=== PATIENT | female | born 1960 | race Caucasian/White ===

== ENCOUNTER 2019-09-17 07:35 | Inpatient (IN) | payer OTHER, SELFPAY ==
[2019-09-17] MEDS ORDERED: NA CHLORIDE 0.9% 4,000 ML ONE (08:12)
[2019-09-17] MEDS ORDERED: HYDROCORTISONE SUC 100 MG INJ ONE (08:12)
[2019-09-17] MEDS ORDERED: ACETAMINOPHEN 500 MG TAB ONE ×2 (08:12→13:58)
[2019-09-17 08:18] LABS: Absolute Lymphocytes (CBC) 0.5 K/uL (0.7-4.9); Basophils % 0.2 % (0-1.3); Hematocrit 37.7 % (36.0-45.0); Lymphocytes % 3.4 % (15.3-44.8); MPV 9.5 fL (7.6-11.3); RBC Red Blood Cell Count 4.24 M/uL (3.86-4.86)
[2019-09-17] MEDS ORDERED: CEFEPIME 2 GM VIAL ONE (08:38)
[2019-09-17] MEDS ORDERED: NA CHLORIDE 0.9% 100 ML IV ONE (08:39)
[2019-09-17] MEDS ORDERED: VANCOMYCIN 1 GM/VIAL ONE (08:39)
[2019-09-17] MEDS ORDERED: FAMOTIDINE 20 MG/2 ML VIAL IV ONE ×2 (08:40→09:00)
[2019-09-17] MEDS ORDERED: NA CHLORIDE 0.9% 500 ML ONE (08:44)
--- NOTE | 2019-09-17 08:47 | EDPHYS ---
Physician Documentation [facility] Name: Rebecca Bunch Age: 59 yrs Sex: Female : 1960 Arrival Date: 09/17/2019 Time: 07:46 Bed 8 Private MD: ARTUR Physician Silvano Marin HPI: 09/16 08:03 This 59 yrs old Female presents to ER via Unassigned with complaints of richard Nausea/Vomiting. 08:03 The patient presents to the emergency department with nausea, vomiting, diarrhea, richard abdominal pain. Onset: The symptoms/episode began/occurred 3 day(s) ago. Possible causes: unknown. The symptoms are aggravated by nothing. The symptoms are alleviated by nothing. Associated signs and symptoms: Pertinent positives: abdominal pain, dysuria, fever. Severity of symptoms: At their worst the symptoms were moderate severe in the emergency department the symptoms are unchanged. The patient has not experienced similar symptoms in the past. Historical: - Allergies: 08:21 Benadryl; ia1 08:21 Aspirin; ia1 - Home Meds: 08:20 hydroxyzine HCl 25 mg Oral tab 1 tab Q4hrs as needed for Itching [Active]; montelukast ia1 10 mg oral tab 1 tab once daily [Active]; pantoprazole 40 mg oral TbEC 1 tab once daily [Active]; quetiapine 100 mg oral tab 1 tab once daily [Active]; fluconazole 150 mg Oral tab 1 tab once a week [Active]; ibuprofen 800 mg Oral tab 1 tab 3 times per day [Active]; tizanidine 4 mg oral tab 1 tab every 8 hours [Active]; furosemide 40 mg Oral tab 1 tab once daily [Active]; Mucinex 600 mg oral Ta12 1 tab every 12 hours [Active]; lorazepam 1 mg Oral tab 1 tab 2 times per day [Active]; fluoxetine 40 mg Oral cap 1 cap once daily [Active]; baclofen 10 mg Oral tab 1 tab 3 times per day [Active]; ropinirole 1 mg oral tab 1 tab daily [Active]; gabapentin 600 mg oral tab 1 tab 3 times per day [Active]; ondansetron 4 mg oral TbDL [Active]; - PMHx: 08:21 COPD; Diabetes - NIDDM; ia1 - PSHx: 08:21 Hysterectomy; Cholecystectomy; ia1 - Immunization history:: Flu vaccine is up to date. - Social history:: Smoking status: Patient/guardian denies using. ROS: 08:06 Eyes: Negative for injury, pain, redness, and discharge, ENT: Negative for injury, richard pain, and discharge, Neck: Negative for injury, pain, and swelling, Respiratory: Negative for shortness of breath, cough, wheezing, and pleuritic chest pain, Back: Negative for injury and pain, MS/Extremity: Negative for injury and deformity, Skin: Negative for injury, rash, and discoloration, Neuro: Negative for headache, weakness, numbness, tingling, and seizure, Psych: Negative for depression, anxiety, suicide ideation, homicidal ideation, and hallucinations, Allergy/Immunology: Negative for hives, rash, and allergies, Endocrine: Negative for neck swelling, polydipsia, polyuria, polyphagia, and marked weight changes, Hematologic/Lymphatic: Negative for swollen nodes, abnormal bleeding, and unusual bruising. 08:06 Constitutional: Positive for body aches, chills, fatigue, fever, malaise, poor PO intake. 08:06 Cardiovascular: Positive for palpitations. 08:06 Respiratory: Positive for cough, shortness of breath, on exertion. 08:06 Abdomen/GI: Positive for abdominal pain. 08:06 : Positive for urinary symptoms, urinary frequency, burning with urination, difficulty urinating. 08:06 MS/extremity: Negative for acute changes. Exam: 08:06 Head/Face: Normocephalic, atraumatic. Eyes: Pupils equal round and reactive to light, richard extra-ocular motions intact. Lids and lashes normal. Conjunctiva and sclera are non-icteric and not injected. Cornea within normal limits. Periorbital areas with no swelling, redness, or edema. ENT: Nares patent. No nasal discharge, no septal abnormalities noted. Tympanic membranes are normal and external auditory canals are clear. Oropharynx with no redness, swelling, or masses, exudates, or evidence of obstruction, uvula midline. Mucous membranes moist. Neck: Trachea midline, no thyromegaly or masses palpated, and no cervical lymphadenopathy. Supple, full range of motion without nuchal rigidity, or vertebral point tenderness. No Meningismus. Chest/axilla: Normal chest wall appearance and motion. Nontender with no deformity. No lesions are appreciated. Respiratory: Lungs have equal breath sounds bilaterally, clear to auscultation and percussion. No rales, rhonchi or wheezes noted. No increased work of breathing, no retractions or nasal flaring. Abdomen/GI: Soft, non-tender, with normal bowel sounds. No distension or tympany. No guarding or rebound. No evidence of tenderness throughout. Female : Normal external genitalia. Skin: Warm, dry with normal turgor. Normal color with no rashes, no lesions, and no evidence of cellulitis. MS/ Extremity: Pulses equal, no cyanosis. Neurovascular intact. Full, normal range of motion. Neuro: Awake and alert, GCS 15, oriented to person, place, time, and situation. Cranial nerves II-XII grossly intact. Motor strength 5/5 in all extremities. Sensory grossly intact. Cerebellar exam normal. Normal gait. Psych: Awake, alert, with orientation to person, place and time. Behavior, mood, and affect are within normal limits. 08:06 Constitutional: The patient appears febrile, lethargic, in obvious distress, mildly distressed. 08:06 ENT: Mouth: Oral mucosa: dry, Gums: normal with healthy appearance, Tongue: dry, Posterior pharynx: is normal, no acute changes. 08:06 Cardiovascular: Rate: tachycardic, Rhythm: regular, Pulses: Pulses are 4+ in bilateral radial, brachial, femoral, popliteal, posterior tibial and and dorsalis pedis arteries.. Heart sounds: normal, Edema: is not appreciated, JVD: is not appreciated. 08:06 Respiratory: the patient does not display signs of respiratory distress, Respirations: normal, no acute changes, labored breathing, is not present, Breath sounds: decreased breath sounds, Respiratory rate: 30 Vital Signs: 07:43 BP 88 / 50; Pulse 97; Resp 32 S; Temp 103.1(O); Pulse Ox 88% on R/A; Weight 145.15 kg; jl7 Height 5 ft. 9 in. (175.26 cm); Pain 8/10; 08:00 BP 98 / 48; Pulse 97; Resp 33 S; Pulse Ox 92% on 3 lpm NC; jl7 08:30 BP 80 / 58; Pulse 97; Resp 29 S; Pulse Ox 92% on 3 lpm NC; jl7 09:00 BP 101 / 75; Pulse 95; Resp 31 S; Pulse Ox 93% on 3 lpm NC; jl7 09:30 BP 78 / 65; Pulse 95; Resp 23 S; Pulse Ox 95% on 3 lpm NC; jl7 10:00 BP 94 / 51; Pulse 97; Resp 23 S; Temp 100.3(O); Pulse Ox 94% on 2 lpm NC; jl7 10:00 Temp 100.3(O); jl7 10:30 BP 97 / 77; Pulse 89; Resp 25; Pulse Ox 94% on 2 lpm NC; jl7 11:11 BP 114 / 64; Pulse 86; Resp 22 S; Temp 99(O); Pulse Ox 94% on 2 lpm NC; jl7 12:30 BP 117 / 67; Pulse 84; Resp 22 S; Temp 98.9(O); Pulse Ox 94% on 2 lpm NC; jl7 13:00 BP 115 / 67; Pulse 80; Resp 21 S; Pulse Ox 95% on 2 lpm NC; jl7 14:00 Pulse 116; Resp 24 S; Temp 99.8(O); Pulse Ox 94% on 2 lpm NC; jl7 14:45 BP 187 / 80; Pulse 106; jl7 15:40 BP 138 / 66; Pulse 111; Resp 22 S; Temp 103.1(O); Pulse Ox 92% on 3 lpm NC; jl7 16:33 BP 123 / 64; Pulse 102; Resp 28 S; Pulse Ox 93% on 3 lpm NC; jl7 17:00 BP 116 / 73; Pulse 100; Resp 24; Temp 100.4(O); Pulse Ox 94% on 3 lpm NC; jl7 07:43 Body Mass Index 47.26 (145.15 kg, 175.26 cm) jl7 14:00 unable to obtain BP due to shaking jl7 Procedures: 08:16 Peripheral line: by aseptic technique a peripheral line was placed in the right [facility] external jugular vein. 09:26 Central Line: the site was prepped with Betadine, in sterile fashion, a triple lumen [facility] catheter was inserted, in the right in 1 attempts. placement was verified, by blood return, the site was dressed with using sterile technique, the patient tolerated the procedure, well. [facility]: 07:47 Patient medically screened. [facility] 08:06 Data reviewed: vital signs, nurses notes, lab test result(s), EKG, radiologic studies, [facility] CT scan, plain films. 09/16 08:02 Order name: Basic Metabolic Panel; Complete Time: 10:03 [facility] 09/16 08:02 Order name: CBC with Diff; Complete Time: 10:03 [facility] 09/16 08:02 Order name: LFT's; Complete Time: 10:03 [facility] 09/16 08:02 Order name: Magnesium; Complete Time: 10:03 [facility] 09/16 08:02 Order name: NT PRO-BNP; Complete Time: 10:03 [facility] 09/16 08:02 Order name: PT-INR; Complete Time: 14:20 [facility] 09/16 08:02 Order name: Troponin (emerg Dept Use Only); Complete Time: 10:03 [facility] 09/16 08:02 Order name: Amylase, Serum; Complete Time: 10:03 [facility] 09/16 08:02 Order name: Blood Culture Adult (2) [facility] 09/16 08:02 Order name: Ckmb; Complete Time: 10:03 [facility] 09/16 08:02 Order name: CPK; Complete Time: 10:03 [facility] 09/16 08:02 Order name: Lactate; Complete Time: 08:44 [facility] 09/16 08:02 Order name: Lipase; Complete Time: 10:03 [facility] 09/16 08:02 Order name: Procalcitonin; Complete Time: 10:03 [facility] 09/16 08:02 Order name: Ptt, Activated; Complete Time: 14:20 [facility] 09/16 08:02 Order name: Urine Microscopic Only; Complete Time: 10:03 [facility] 09/16 08:14 Order name: Glucose, Ancillary Testing; Complete Time: 08:17 EDNC 09/16 08:37 Order name: Urine Dipstick--Ancillary (enter results); Complete Time: 14:20 ms 09/16 09:19 Order name: Manual Differential; Complete Time: 10:03 EDMS 09/16 09:38 Order name: Urine Culture EDNC 09/16 14:32 Order name: ABG [facility] 09/16 14:37 Order name: Glucose, Ancillary Testing; Complete Time: 15:06 EDMS 09/16 14:48 Order name: ABG Arterial Blood Gas; Complete Time: 15:06 EDMS 09/16 15:37 Order name: BMP jl7 09/16 16:16 Order name: Basic Metabolic Panel; Complete Time: 07:46 EDMS 09/16 19:00 Order name: Hemoglobin A1c; Complete Time: 07:46 EDMS 09/16 21:30 Order name: Gram Stain--Anaerobic Bottle EDMS 09/16 21:31 Order name: Gram Stain--Anaerobic Bottle EDMS 09/16 21:41 Order name: Glucose, Ancillary Testing; Complete Time: 07:46 EDMS 09/16 08:02 Order name: XRAY Chest (1 view); Complete Time: 14:20 [facility] 09/16 08:02 Order name: EKG; Complete Time: 08:04 [facility] 09/16 08:02 Order name: Cardiac monitoring; Complete Time: 12:38 [facility] 09/16 08:02 Order name: EKG - Nurse/Tech; Complete Time: 11:16 [facility] 09/16 08:02 Order name: IV Saline Lock; Complete Time: 10:29 [facility] 09/16 08:02 Order name: CT Chest Abdomen Pelvis W/O Contrast: no iv no oral; Complete Time: 14:20 [facility] 09/16 14:32 Order name: CT Head Brain wo Cont [facility] 09/16 15:37 Order name: CT; Complete Time: 07:46 EDMS 09/16 21:57 Order name: Lactate; Complete Time: 07:46 EDMS 09/16 23:12 Order name: Glucose, Ancillary Testing; Complete Time: 07:46 EDMS 09/17 02:26 Order name: Lactate Sepsis 2 HR Follow-up; Complete Time: 07:46 EDMS 09/17 05:20 Order name: CBC with Automated Diff; Complete Time: 07:46 EDMS 09/17 05:41 Order name: Basic Metabolic Panel; Complete Time: 07:46 EDMS 09/17 05:41 Order name: Lipid Profile; Complete Time: 07:46 EDMS 09/17 05:41 Order name: T4 Free; Complete Time: 07:46 EDMS 09/17 05:41 Order name: Magnesium; Complete Time: 07:46 EDMS 09/17 05:41 Order name: Thyroid Stimulating Hormone; Complete Time: 07:46 EDMS 09/17 07:01 Order name: Gram Stain--Aerobic Bottle EDMS 09/17 07:02 Order name: Gram Stain--Aerobic Bottle EDMS 09/17 07:43 Order name: US; Complete Time: 07:46 EDMS 09/17 08:08 Order name: Diet [place] 1800 [place]; Complete Time: 08:09 bd 09/17 08:23 Order name: Glucose, Ancillary Testing EDMS 09/16 08:02 Order name: Labs collected and sent; Complete Time: 10:29 richard 09/16 08:02 Order name: O2 Per Protocol; Complete Time: 10: rcihard 09/16 08:02 Order name: O2 Sat Monitoring; Complete Time: 10: richard 09/16 08:02 Order name: Accucheck; Complete Time: 10: richard 09/16 08:02 Order name: IV Saline Lock - Large Bore; Complete Time: 10: richard 09/16 08:02 Order name: Urine Dipstick-Ancillary (obtain specimen); Complete Time: 10: [facility] 09/16 08:02 Order name: Nath; Complete Time: 10: richard 09/16 08:17 Order name: IV Saline Lock - Large Bore; Complete Time: 10: [facility] 09/16 14:33 Order name: Blood Glucose Level; Complete Time: 14:34 [facility] Administered Medications: 08:30 Drug: Cefepime 2 grams Route: IVPB; Rate: 200 ml/hr; Infused Over: 30 mins; Site: right jl7 antecubital; 09:00 Follow up: Response: No adverse reaction; IV Status: Completed infusion jl7 08:30 Drug: Tylenol 1000 mg Route: PO; jl7 10:00 Follow up: Temp 100.3 Oral; Response: No adverse reaction; Temperature is decreased jl7 08:35 Drug: NS 0.9% (30 ml/kg) 30 ml/kg Route: IV; Rate: bolus; Site: right antecubital; jl7 09:40 Drug: NS 0.9% (30 ml/kg) 30 ml/kg Route: IV; Rate: bolus; Site: right femoral; jl7 12:00 Follow up: Response: No adverse reaction; IV Status: Completed infusion; IV Intake: [facility] 4354ml 09:40 Drug: vancoMYCIN 2 grams Route: IVPB; Rate: calculated rate; Site: right femoral; jl7 11:40 Follow up: Response: No adverse reaction; IV Status: Completed infusion jl7 09:40 Drug: Solu-CORTEF 100 mg Route: IVP; Site: right femoral; jl7 10:46 Follow up: Response: No adverse reaction jl7 11:02 Drug: Pepcid 20 mg Route: IVP; Site: right antecubital; jl7 11:05 Follow up: Response: No adverse reaction jl7 14:00 Drug: Tylenol 500 mg Route: PO; jl7 15:40 Follow up: Response: No adverse reaction; Temperature is increased jl7 15:45 Drug: Tylenol 650 mg Route: PO; jl7 17:00 Follow up: Response: No adverse reaction; Temperature is decreased jl7 15:55 Drug: NS 0.45 % 1000 ml Route: IV; Rate: 100 ml/hr; Site: right forearm; jl7 19:02 Follow up: IV Status: Infusion continued upon admission jl7 18:02 Drug: Thiamine 100 mg Route: IV; Rate: bolus; Site: right femoral; jl7 18:03 Follow up: Response: No adverse reaction; IV Status: Completed infusion jl7 Disposition: 09/17/19 08:46 Hospitalization ordered by Rishi Pulido for Inpatient Admission. Preliminary diagnosis are Sepsis, unspecified organism, Severe sepsis with septic shock, Elevated white blood cell count, Hypotension, Fever, unspecified, Obesity, unspecified, Type 2 diabetes mellitus, Unspecified kidney failure, Bandemia. - Bed requested for Telemetry/MedSurg (Inpatient). - Status is Inpatient Admission. bp - Condition is Fair. - Problem is new. - Symptoms have improved. Signatures: Dispatcher [employer] EDDaija Soler RN RN dw Anderson, Corey, MD MD cha Villarreal, Maria ms Leal, Jahala, RN RN jl7 Peltier, Brian, RN RN bp Arroyo, Ivonne ia1 Corrections: (The following items were deleted from the chart) 08:24 08:06 Family history: not pertinent, richard ia1 08:24 08:07 Social history: Smoking status: Patient/guardian denies using ia1 ia1 08:24 08:21 Immunization history: Flu vaccine is up to date. ia1 ia1 09:26 08:46 Hospitalization Ordered by Rishi Pulido DO for Inpatient Admission. Preliminary [facility] diagnosis is Sepsis, unspecified organism; Severe sepsis with septic shock; Elevated white blood cell count; Hypotension; Fever, unspecified; Obesity, unspecified. Bed requested for Intensive Care Unit. Status is Inpatient Admission. Condition is Fair. Problem is new. Symptoms have improved. [facility] 10:04 09:26 09/17/2019 08:46 Hospitalization Ordered by Rishi Pulido DO for Inpatient richard Admission. Preliminary diagnosis is Sepsis, unspecified organism; Severe sepsis with septic shock; Elevated white blood cell count; Hypotension; Fever, unspecified; Obesity, unspecified; Type 2 diabetes mellitus. Bed requested for Intensive Care Unit. Status is Inpatient Admission. Condition is Fair. Problem is new. Symptoms have improved. [facility] 15:07 10:04 09/17/2019 08:46 Hospitalization Ordered by Rishi Pulido DO for Inpatient richard Admission. Preliminary diagnosis is Sepsis, unspecified organism; Severe sepsis with septic shock; Elevated white blood cell count; Hypotension; Fever, unspecified; Obesity, unspecified; Type 2 diabetes mellitus; Unspecified kidney failure. Bed requested for Intensive Care Unit. Status is Inpatient Admission. Condition is Fair. Problem is new. Symptoms have improved. [facility] 16:05 15:07 09/17/2019 08:46 Hospitalization Ordered by Rishi Pulido DO for Inpatient ms Admission. Preliminary diagnosis is Sepsis, unspecified organism; Severe sepsis with septic shock; Elevated white blood cell count; Hypotension; Fever, unspecified; Obesity, unspecified; Type 2 diabetes mellitus; Unspecified kidney failure; Bandemia. Bed requested for Intensive Care Unit. Status is Inpatient Admission. Condition is Fair. Problem is new. Symptoms have improved. [facility] 09/17 09:09 03/ 16:05 09/17/2019 08:46 Hospitalization Ordered by Rishi Pulido DO for Inpatient dw Admission. Preliminary diagnosis is Sepsis, unspecified organism; Severe sepsis with septic shock; Elevated white blood cell count; Hypotension; Fever, unspecified; Obesity, unspecified; Type 2 diabetes mellitus; Unspecified kidney failure; Bandemia. Bed requested for [facility] ER HOLD. Status is Inpatient Admission. Condition is Fair. Problem is new. Symptoms have improved. fl 09/17 09:09 09:09 09/17/2019 08:46 Hospitalization Ordered by Rishi Pulido DO for Inpatient dw Admission. Preliminary diagnosis is Sepsis, unspecified organism; Severe sepsis with septic shock; Elevated white blood cell count; Hypotension; Fever, unspecified; Obesity, unspecified; Type 2 diabetes mellitus; Unspecified kidney failure; Bandemia. Bed requested for Telemetry/MedSurg (Inpatient). Status is Inpatient Admission. Condition is Fair. Problem is new. Symptoms have improved. dw 09:55 09:09 09/17/2019 08:46 Hospitalization Ordered by Rishi Pulido DO for Inpatient bp Admission. Preliminary diagnosis is Sepsis, unspecified organism; Severe sepsis with septic shock; Elevated white blood cell count; Hypotension; Fever, unspecified; Obesity, unspecified; Type 2 diabetes mellitus; Unspecified kidney failure; Bandemia. Bed requested for Telemetry/MedSurg (Inpatient). Status is Inpatient Admission. Condition is Fair. Problem is new. Symptoms have improved. dw
--- NOTE | 2019-09-17 08:47 | ER ---
Nurse's Notes [facility] Name: Rebecca Bunch Age: 59 yrs Sex: Female : 1960 Arrival Date: 09/17/2019 Time: 07:46 Bed 8 Private MD: Diagnosis: Sepsis, unspecified organism;Severe sepsis with septic shock;Elevated white blood cell count;Hypotension;Fever, unspecified;Obesity, unspecified;Type 2 diabetes mellitus;Unspecified kidney failure;Bandemia Presentation: 09/16 07:40 Method Of Arrival: EMS: [facility] ia1 07:40 Acuity: STU 2 iw 07:40 Chief complaint: EMS states: N/V/D, burning with urination started Wednesday. jl7 07:40 Coronavirus screen: The patient has NOT traveled to [place] in the past 14 days. Proceed jl7 with normal triage procedures. Ebola Screen: No symptoms or risks identified at this time. 07:46 Initial Sepsis Screen: Does the patient meet any 2 criteria? Yes Does the patient have jl7 a suspected source of infection? Yes: Dysuria/Frequency/Urgency/UTI If YES to both, name of provider notified: Silvano Marin MD Risk Assessment: Do you want to hurt yourself or someone else? Patient reports no desire to harm self or others. Care prior to arrival: None. 08:00 Onset of symptoms was September 15, 2019. jl7 Historical: - Allergies: 08:21 Benadryl; ia1 08:21 Aspirin; ia1 - Home Meds: 08:20 hydroxyzine HCl 25 mg Oral tab 1 tab Q4hrs as needed for Itching [Active]; montelukast ia1 10 mg oral tab 1 tab once daily [Active]; pantoprazole 40 mg oral TbEC 1 tab once daily [Active]; quetiapine 100 mg oral tab 1 tab once daily [Active]; fluconazole 150 mg Oral tab 1 tab once a week [Active]; ibuprofen 800 mg Oral tab 1 tab 3 times per day [Active]; tizanidine 4 mg oral tab 1 tab every 8 hours [Active]; furosemide 40 mg Oral tab 1 tab once daily [Active]; Mucinex 600 mg oral Ta12 1 tab every 12 hours [Active]; lorazepam 1 mg Oral tab 1 tab 2 times per day [Active]; fluoxetine 40 mg Oral cap 1 cap once daily [Active]; baclofen 10 mg Oral tab 1 tab 3 times per day [Active]; ropinirole 1 mg oral tab 1 tab daily [Active]; gabapentin 600 mg oral tab 1 tab 3 times per day [Active]; ondansetron 4 mg oral TbDL [Active]; - PMHx: 08:21 COPD; Diabetes - NIDDM; ia1 - PSHx: 08:21 Hysterectomy; Cholecystectomy; ia1 - Immunization history:: Flu vaccine is up to date. - Social history:: Smoking status: Patient/guardian denies using. Screenin:40 Fall Risk No fall in past 12 months (0 pts). No secondary diagnosis (0 pts). IV access ia1 (20 points). Ambulatory Aid- None/Bed Rest/Nurse Assist (0 pts). Gait- Weak (10 pts.). Mental Status- Oriented to own ability (0 pts). Total Lee Fall Scale indicates Low Risk Score (25-44 pts). Fall prevention measures have been instituted. Side Rails Up X 2 Placed close to Nursing Station Frequent Obs/Assesments occuring Family Present and informed to notify staff if they need to leave bedside As available Patient and Family Educated on Fall Prevention Program and strategies. 07:55 Abuse screen: Denies threats or abuse. Denies injuries from another. Nutritional ia1 screening: No deficits noted. Tuberculosis screening: No symptoms or risk factors identified. 08:00 The patient has not been NPO before screening. The patient is currently on the ia1 following diet: Regular The patient is alert, able to follow commands. The patient does not exhibit slurred or garbled speech The patient is not exhibiting difficulty speaking. The patient does not exhibit difficulty understanding words. The patient is able to swallow own secretions with no drooling or need for suction. Patient tolerated one teaspoon of water. No drooling, immediate coughing, gurgling, or clearing of the throat was noted. The patient tolerated 90mL of water. No drooling, immediate coughing, gurgling, or clearing of the throat was noted. The patient passed the bedside swallow screening. Oral medications may be given as ordered. Contact Physician for further diet orders. Provider notified of bedside swallow screening results: Silvano Marin MD. Assessment: 07:40 General: Appears in no apparent distress. uncomfortable, obese, Behavior is calm, ia1 cooperative, Appears lethargic.. Neuro: Level of Consciousness is awake, obeys commands, lethargic. 07:40 Neuro: Oriented to person, place, time, situation. Cardiovascular: Patient's skin is ia1 warm and dry. Respiratory: Airway is patent Respiratory effort is even, labored, shallow, Respiratory pattern is symmetrical, tachypnea. GI: Abdomen is round obese, Pt reports has been vomiting,and having diarrhea since Wednesday. Reports that she began with tremors a day before Wednesday. Last BM was Wednesday. Derm: Skin is red, Dry mm, chapped lips. 07:40 Pain: Complains of pain in "all over body" Pain currently is 8 out of 10 on a pain ia1 scale. Quality of pain is described as aching, Pain began 2-3 days ago. Is continuous. 07:55 : Reports burning with urination, since wednesday Pt reports urine is dark and cloudy. ia1 10:30 Reassessment: Patient appears in no apparent distress at this time. Patient and/or jl7 family updated on plan of care and expected duration. Pain level reassessed. Patient is alert, oriented x 3, equal unlabored respirations, skin warm/dry/pink. Patient states feeling better. Neuro: Level of Consciousness is awake, alert, obeys commands, Oriented to person, place, time, situation. 11:30 Reassessment: Pt sitting in bed talking with family, denies discomfort at this time. jl7 12:30 Reassessment: Pt laying in bed with eyes closed, respirations even and unlabored, no jl7 signs of distress noted at this time. Family remains at bedside. 14:00 Reassessment: Pt shivering, reports feeling cold, 99.8, Dr. Pulido gave VO for Tylenol jl7 500 mg PO. Administered medication as ordered. 14:30 Reassessment: Pt unable to keep eyes open, oriented to person only, breathing appears jl7 labored; mucous membranes dry. Dr. Marin notified and came to bedside to assess pt. New orders received. 14:50 Reassessment: Pt to CT via stretcher. jl7 15:30 Reassessment: Pt returned from CT, remains confused and unable to answer questions jl7 appropriately. 15:40 Reassessment: Dr. Pulido at bedside, pt oriented x 4, drowsy, VO for Tylenol 650 PO and jl7 1/2 NS at 100 ml/hr after redrawing BMP. 16:42 Reassessment: Dr. Pulido notified of BMP results, VO to continue with 1/2 NS at 100 jl7 ml/hr. 18:30 Reassessment: Pt ER Hold, see [facility] for further documentation. jl7 21:00 Reassessment: Patient appears in no apparent distress at this time. Patient and/or ll1 family updated on plan of care and expected duration. Pain level reassessed. Patient is alert, oriented x 3, equal unlabored respirations, skin warm/dry/pink. Patient care assumed. ER HOLD. See [facility] for further assessments/orders. 09/17 09:38 Reassessment: REPORT TO NNAMDI STEWART FOR 229. bp Vital Signs: 09/16 07:43 BP 88 / 50; Pulse 97; Resp 32 S; Temp 103.1(O); Pulse Ox 88% on R/A; Weight 145.15 kg; jl7 Height 5 ft. 9 in. (175.26 cm); Pain 8/10; 08:00 BP 98 / 48; Pulse 97; Resp 33 S; Pulse Ox 92% on 3 lpm NC; jl7 08:30 BP 80 / 58; Pulse 97; Resp 29 S; Pulse Ox 92% on 3 lpm NC; jl7 09:00 BP 101 / 75; Pulse 95; Resp 31 S; Pulse Ox 93% on 3 lpm NC; jl7 09:30 BP 78 / 65; Pulse 95; Resp 23 S; Pulse Ox 95% on 3 lpm NC; jl7 10:00 BP 94 / 51; Pulse 97; Resp 23 S; Temp 100.3(O); Pulse Ox 94% on 2 lpm NC; jl7 10:00 Temp 100.3(O); jl7 10:30 BP 97 / 77; Pulse 89; Resp 25; Pulse Ox 94% on 2 lpm NC; jl7 11:11 BP 114 / 64; Pulse 86; Resp 22 S; Temp 99(O); Pulse Ox 94% on 2 lpm NC; jl7 12:30 BP 117 / 67; Pulse 84; Resp 22 S; Temp 98.9(O); Pulse Ox 94% on 2 lpm NC; jl7 13:00 BP 115 / 67; Pulse 80; Resp 21 S; Pulse Ox 95% on 2 lpm NC; jl7 14:00 Pulse 116; Resp 24 S; Temp 99.8(O); Pulse Ox 94% on 2 lpm NC; jl7 14:45 BP 187 / 80; Pulse 106; jl7 15:40 BP 138 / 66; Pulse 111; Resp 22 S; Temp 103.1(O); Pulse Ox 92% on 3 lpm NC; jl7 16:33 BP 123 / 64; Pulse 102; Resp 28 S; Pulse Ox 93% on 3 lpm NC; jl7 17:00 BP 116 / 73; Pulse 100; Resp 24; Temp 100.4(O); Pulse Ox 94% on 3 lpm NC; jl7 07:43 Body Mass Index 47.26 (145.15 kg, 175.26 cm) jl7 14:00 unable to obtain BP due to shaking jl7 ED Course: 07:46 Patient arrived in ED. jl7 07:46 Arm band placed on right wrist. Patient placed in an exam room, on a stretcher, on jl7 conveyor monitor, on pulse oximetry. 07:47 Silvano Marin MD is Attending Physician. richard 07:55 Patient has correct armband on for positive identification. Placed in gown. Bed in low ia1 position. Call light in reach. Side rails up X2. Pulse ox on. NIBP on. 07:55 Inserted saline lock: 18 gauge in right EJ, using aseptic technique. ,using aseptic [facility] technique. inserted by Dr. Marin Blood collected. 07:55 Initial lab(s) drawn, by ED staff, sent to lab. First set of blood cultures drawn by 7 physician. Second set of blood cultures drawn by physician. 08:01 Adria Godwin, TERRY is Primary Nurse. jl7 08:33 Triage completed. iw 08:36 Note: dr marin to put in a central line \\T\\ this time. bq 08:37 XRAY Chest (1 view) In Process Unspecified. EDMS 08:40 EJ infiltrated, IV dc'd, bleeding controlled, pressure drsg applied. jl7 08:45 Rishi Pulido DO is Hospitalizing Provider. richard 08:55 Inserted saline lock: 20 gauge in right antecubital area, using aseptic technique. jl7 09:20 Assisted provider with central line placement. Set up central line tray. Triple lumen jl7 line placed in right femoral. Line placed by Silvano Marin MD Placement verified by blood return, Dressed with Tegaderm, Patient tolerated well. Before procedure, did Practitioner(s) obtain informed consent? No. Patient \\T\\ family education about procedure, CLABSI prevention and S/S of infection? Yes. Time-out/Briefing performed prior to start of procedure? Yes. Was handwashing/sanitizing done immediately prior to procedure? Yes. Was patient positioned to in a way to prevent air embolism? Yes. Was procedure site sterilized? Yes, with chlorhexidine. Was the site allowed to dry? Yes. Was local anesthetic and/or sedation utilized? Yes. During the procedure, did the Practitioner(s) maintain a sterile field? Yes. Were unused ports clamped during insertion? Yes. Was a 2nd qualified MD obtained after 3 unsuccessful insertion attempts? No. Was blood aspirated from each lumen? Yes. After the procedure, did the Practitioner(s) clean the site and apply a sterile dressing? Yes. 09:53 CT Chest Abdomen Pelvis W/O Contrast: no iv no oral In Process Unspecified. EDMS 09:53 CT completed. Patient tolerated procedure well. Patient moved back from CT. bq 19:38 Primary Nurse role handed off by Adria Godwin RN jl7 21:30 Margo Mckeon, TERRY is Primary Nurse. ll1 Administered Medications: 08:30 Drug: Cefepime 2 grams Route: IVPB; Rate: 200 ml/hr; Infused Over: 30 mins; Site: right jl7 antecubital; 09:00 Follow up: Response: No adverse reaction; IV Status: Completed infusion jl7 08:30 Drug: Tylenol 1000 mg Route: PO; jl7 10:00 Follow up: Temp 100.3 Oral; Response: No adverse reaction; Temperature is decreased jl7 08:35 Drug: NS 0.9% (30 ml/kg) 30 ml/kg Route: IV; Rate: bolus; Site: right antecubital; jl7 09:40 Drug: NS 0.9% (30 ml/kg) 30 ml/kg Route: IV; Rate: bolus; Site: right femoral; jl7 12:00 Follow up: Response: No adverse reaction; IV Status: Completed infusion; IV Intake: jl7 4354ml 09:40 Drug: vancoMYCIN 2 grams Route: IVPB; Rate: calculated rate; Site: right femoral; jl7 11:40 Follow up: Response: No adverse reaction; IV Status: Completed infusion jl7 09:40 Drug: Solu-CORTEF 100 mg Route: IVP; Site: right femoral; jl7 10:46 Follow up: Response: No adverse reaction jl7 11:02 Drug: Pepcid 20 mg Route: IVP; Site: right antecubital; jl7 11:05 Follow up: Response: No adverse reaction jl7 14:00 Drug: Tylenol 500 mg Route: PO; jl7 15:40 Follow up: Response: No adverse reaction; Temperature is increased jl7 15:45 Drug: Tylenol 650 mg Route: PO; jl7 17:00 Follow up: Response: No adverse reaction; Temperature is decreased jl7 15:55 Drug: NS 0.45 % 1000 ml Route: IV; Rate: 100 ml/hr; Site: right forearm; jl7 19:02 Follow up: IV Status: Infusion continued upon admission jl7 18:02 Drug: Thiamine 100 mg Route: IV; Rate: bolus; Site: right femoral; jl7 18:03 Follow up: Response: No adverse reaction; IV Status: Completed infusion jl7 Intake: 12:00 IV: 4354ml; Total: 4354ml. 7 Outcome: 08:46 Decision to Hospitalize by Provider. [facility] 18:30 Attestation : I agree with everything documented by Janessa Student Nurse. [facility] 18:30 Admitted to ER Hold. Please see [facility] for further documentation. 18:30 Condition: stable 18:30 Discharge instructions given to patient, family, Instructed on the need for admit, Demonstrated understanding of instructions. 03 09:55 Patient left the ED. bp Signatures: Dispatcher [employer] EDMS Silvano Marin MD MD cha Quilty, Betty bq Williams, Irene, RN RN iw Leal, Jahala, RN RN jl7 Peltier, Brian, RN RN bp Arroyo, Ivonne ia1 Lewis, Lynsay, RN RN ll1 Corrections: (The following items were deleted from the chart) 09/16 08:24 08:06 Family history: not pertinent, richard ia1 08:24 08:07 Social history: Smoking status: Patient/guardian denies using ia1 ia1 08: 08:21 Immunization history: Flu vaccine is up to date. ia1 ia1 07:40 Neuro: Level of Consciousness is awake, alert, obeys commands, lethargic, ia1 ia1 07:40 Respiratory: Airway is patent Respiratory effort is even, unlabored, Respiratory ia1 pattern is regular, symmetrical, ia1 07:40 Derm: Skin is pale, Dry mm, chapped lips. ia1 ia1 19:17 19:15 Response: No adverse reaction; IV Status: Completed infusion; IV Intake: 4000ml jl7 jl7
[2019-09-17 08:52] LABS: ALT/SGPT 29 U/L (12-78); AST/SGOT 29 U/L (15-37); Albumin 2.5 g/dL (3.4-5.0); Alkaline Phosphatase 144 U/L (45-117); Amylase Level 19 U/L (25-115); BUN Blood Urea Nitrogen 57 mg/dL (7-18); Bicarbonate 22 mmol/L (21-32); Bilirubin Direct 0.2 mg/dL (0-0.2); Bilirubin Total 0.5 mg/dL (0.2-1.0); CKMB Creatine Kinase MB < 1.0 ng/mL (0.3-3.6); Creatine Phosphokinase 125 U/L (26-192); Glucose Level 242 mg/dL (74-106); Lipase 81 U/L (73-393); NT PRO-BNP 1364 pg/mL (<125); Potassium 3.5 mmol/L (3.5-5.1); Protein, Total 7.4 g/dL (6.4-8.2); Sodium Level 129 mmol/L (136-145); Troponin (Emerg Dept Use Only) < 0.02 ng/mL (0.0-0.045)
[2019-09-17] MEDS ORDERED: CEFEPIME/SWI 2gm 2 GM/20 ML SYR IVP ONE (09:00)
[2019-09-17] MEDS ORDERED: VANCOMYCIN 2 GM in NA CHLORIDE 0.9% 500 ML IVPB ONE (09:00)
[2019-09-17 09:18] LABS: Blood Morphology Comment NOT SEEN (NOT SEEN); Platelet Estimate ADEQ
[2019-09-17 09:36] LABS: Urine Bacteria >50 /HPF (<20); Urine Culture Reflex Order REFLEXED; Urine RBC 20-50 /HPF (NONE SEEN)
--- NOTE | 2019-09-17 10:04 | RAD REPORT ---
EXAM DESCRIPTION: CT - Chest Abd Pelvis Wo Con - 09/17/2019 9:53 am CLINICAL HISTORY: Chest and abdomen pain. Cough;Abdominal distention;Fever;Dyspnea;Pain COMPARISON: No comparisons TECHNIQUE: A limited noncontrast study was performed. All CT scans are performed using dose optimization technique as appropriate and may include automated exposure control or mA/KV adjustment according to patient size. FINDINGS: The lungs are clear.No pleural or pericardial effusion.No intrathoracic adenopathy. The liver, spleen, pancreas, adrenal glands and kidneys are within normal limits. Cholecystectomy cli ps. Postsurgical changes about the stomach. No bowel obstruction, free air, free fluid or abscess. The appendix is not identified as a discrete s tructure, however, no secondary findings of appendicitis are identified. No pathologic lymphadenopa thy in the abdomen or pelvis. Mild lower lumbar degenerative changes. IMPRESSION: An acute abnormality is not detected.
--- NOTE | 2019-09-17 10:31 | P.HP ---
Certification for Inpatient Patient admitted to: Inpatient With expected LOS: >2 Midnights Patient will require the following post-hospital care: None Practitioner: I am a practitioner with admitting privileges, knowledge of patient current condition, hospital course, and medical plan of care. Services: Services provided to patient in accordance with Admission requirements found in Title 42 Section 412.3 of the Code of Federal Regulations Patient History Date of Service: 09/17/19 Primary Care Provider: Dr. John([place]) Reason for admission: Fever, fatigue History of Present Illness: 59-year-old female with history of diabetes, COPD and obesity presented to the emergency room with fatigue and fever. Patient is visiting in the area. She is originally from [place]. She gets her care there. Since being here she has been having fever, fatigue. She has poor oral intake and output. She has some dysuria. Patient reports a history of UTI. She reported fever this morning. She came to the ER for further evaluation. In the ER patient evaluated. Patient was hypotensive with a blood pressure around 79 systolic. White count 14.1, hemoglobin 12.7. She had 88 segs and 5 bands. Sodium 129, potassium 3.5, BUN of 57, creatinine 3.4 with a GFR of 14 per glucose 242. Pro calcitonin elevated at 37. Lactic acid normal. Urinalysis positive for UTI. Sepsis protocol was initiated in the emergency room. Patient to get central line. When I saw the patient ER, she was able to converse and provide history. Patient appeared dehydrated. Blood pressure had improved for 100 systolic. Patient appeared septic. Home medications list reviewed: Yes - Past Medical/Surgical History Diabetic: Yes -: Diabetes mellitus type 2 insulin dependent -: COPD -: Former tobacco use -: Obesity -: History of UTI -: Cholecystectomy -: Bariatric surgery -: Hiatal hernia -: Hysterectomy Psychosocial/ Personal History: Patient lives in [place]. She was visiting a son who is incarcerated. - Family History Family History: Reviewed- Non-Contributory - Social History Smoking Status: Former smoker Alcohol use: No CD- Drugs: No Caffeine use: Yes Place of Residence: Home Review of Systems General: Fever, Chills, Weakness, As per HPI Eyes: Unremarkable ENT: Unremarkable Respiratory: Unremarkable Cardiovascular: Unremarkable Gastrointestinal: Unremarkable Genitourinary: Dysuria, Frequency, As per HPI Musculoskeletal: Unremarkable Integumentary: Unremarkable Neurological: As per HPI Lymphatics: Unremarkable Physical Examination - Physical Exam General: Alert, In no apparent distress, Oriented x3, Cooperative, Other ( Patient appears dry) HEENT: Atraumatic, Normocephalic, Other (Dry mucous membranes), EOMI Neck: Supple, No Thyromegaly Respiratory: Clear to auscultation bilaterally, Normal air movement Cardiovascular: Normal pulses, Regular rate/rhythm Gastrointestinal: Normal bowel sounds, Soft and benign, Non-distended, No tenderness, No masses, No rebound, No guarding, Other (Patient morbidly obese) Musculoskeletal: No contractures, No erythema, No tenderness, No warmth Integumentary: No erythema, No warmth, No cyanosis, Other (Dry skin) Neurological: Normal speech, Normal strength at 5/5 x4 extr, Normal tone, Normal affect - Studies Laboratory Data (last 24 hrs) 09/17/19 06:55: WBC 14.1 H, Hgb 12.7, Hct 37.7, Plt Count 140 L 09/17/19 06:55: Sodium 129 L, Potassium 3.5, BUN 57 H, Creatinine 3.41 H, Glucose 242 H, Magnesium 2.0, Total Bilirubin 0.5, AST 29, ALT 29, Alkaline Phosphatase 144 H, Amylase 19 L, Lipase 81 Assessment and Plan - Plan Impression: Severe sepsis secondary to UTI Acute renal failure with hyponatremia secondary to sepsis/dehydration/volume depletion Diabetes mellitus type 2 insulin dependent with hyperglycemia COPD Obesity Plan: Severe sepsis secondary to UTI: Patient will be admitted to ICU to continue sepsis protocol. ER to place central line. Will continue with IV fluid hydration. Will start IV Rocephin. Blood and urine culture obtained. Will obtain echocardiogram. Will place Nath catheter to monitor input and output closely. Will provide DVT prophylaxis. Nephrology consulted to further assist. Will continue monitor closely. Will recheck assessment in 6 hr. Anticipate discharge in 3-5 days with clinical improvement. Acute renal failure with hyponatremia secondary to sepsis/dehydration/volume depletion: This is likely from volume depletion. Sepsis IV fluid bolus given. Will continue with protocol. Nephrology consulted. Await further recommendation. Electrolyte protocol in place. Diabetes mellitus type 2 insulin dependent with hyperglycemia: Will check A1c. Will provide sliding scale. Will start basal insulin tonight COPD: Will provide COPD medication. Will maintain sats above 90%. Obesity: Will obtain BMI. Address lifestyle modification education. Discharge Plan: Home Plan to discharge in: Greater than 2 days - Advance Directives Does patient have a Living Will: No Does patient have a Durable POA for Healthcare: No - Code Status/Comfort Care Code Status Assessed: Yes (Patient is full code) Time Spent Managing Pts Care (In Minutes): 65
--- NOTE | 2019-09-17 12:11 | RAD REPORT ---
EXAM DESCRIPTION: RAD - Chest Single View - 09/17/2019 8:36 am CLINICAL HISTORY: Cough;Abdominal distention Chest pain. COMPARISON: Chest Abd Pelvis Wo Con dated 09/17/2019 FINDINGS: Portable technique limits examination quality. The lungs are grossly clear. The heart is upper limit of normal in size. No displaced fractures. IMPRESSION: No acute intrathoracic process suspected.
[2019-09-17 12:13] LABS: Urine Blood 2+ (NEG); Urine Glucose TRACE (NEG); Urine Protein 3+ (NEG); Urine Specific Gravity 1.025 (1.005-1.030)
[2019-09-17 13:11] LABS: Protime INR 1.27
--- NOTE | 2019-09-17 14:40 | P.INFCA ---
Sepsis Focused Assessment - Focused Assessment Complete? Sepsis Focused Assessment Completed?: Yes - Sepsis Screen Result Severe Sepsis: Positive Septic Shock: Negative - Evaluation Current stage of sepsis: Severe sepsis - Vital Signs Reviewed: Yes - Examination Date exam was performed: 09/17/19 Time exam was performed: 12:30 Heart: Regular rate/rhythm Lungs: Clear bilaterally Peripheral pulses: 3+ Normal Peripheral pulse location: Pedal (Better pulses noted) Capillary refill: <2 Seconds Skin examination: Other (Collar to extremities improved.)
[2019-09-17 14:41] LABS: Arterial Blood Carboxyhemoglob 1.2 % (0-1.5); Blood O2 Saturation 93.1 % (92-98.5)
--- NOTE | 2019-09-17 15:35 | RAD REPORT ---
EXAM DESCRIPTION: CT - Head Brain Wo Cont - 09/17/2019 3:19 pm CLINICAL HISTORY: MENTAL STATUS CHANGE Headache, drowsiness COMPARISON: No comparisons TECHNIQUE: All CT scans are performed using dose optimization technique as appropriate and may inclu de automated exposure control or mA/KV adjustment according to patient size. FINDINGS: No intracranial hemorrhage, hydrocephalus or extra-axial fluid collection.No areas of brai n edema or evidence of midline shift. The paranasal sinuses and mastoids are clear. The calvarium is intact. IMPRESSION: No acute intracranial abnormality.
[2019-09-17] MEDS ORDERED: NA CHLORIDE 0.9% 1,000 ML ONE (15:37)
[2019-09-17] MEDS ORDERED: ACETAMINOPHEN 650MG/RECT SUPP PR ONE (15:37)
[2019-09-17] MEDS ORDERED: ACETAMINOPHEN 325 MG TABLET ONE (15:44)
[2019-09-17] MEDS ORDERED: NACHLORIDE 0.45% 1,000 ML IV ONE ×2 (15:45→21:07)
--- NOTE | 2019-09-17 16:02 | P.PN ---
Subjective Date of Service: 09/17/19 Primary Care Provider: Dr. John([place]) Chief Complaint: Fever, fatigue Subjective: Other (Nurse called due to altered mental status. Patient had CT head as recommended by a ER physician's as the patient was in the ER room still. ) Physical Examination - Physical Exam General: Alert, In no apparent distress, Oriented x3, Cooperative HEENT: Atraumatic Neck: Supple Respiratory: Clear to auscultation bilaterally, Normal air movement Cardiovascular: Normal pulses, Regular rate/rhythm - Studies Laboratory Data (last 24 hrs) 09/17/19 06:55: WBC 14.1 H, Hgb 12.7, Hct 37.7, Plt Count 140 L 09/17/19 06:55: Sodium 129 L, Potassium 3.5, BUN 57 H, Creatinine 3.41 H, Glucose 242 H, Magnesium 2.0, Total Bilirubin 0.5, AST 29, ALT 29, Alkaline Phosphatase 144 H, Amylase 19 L, Lipase 81 Assessment & Plan Physician Review Additional Text: Patient alert an oriented. Intermittent encephalopathy likely related to severe sepsis. CT head unremarkable. Will change IV fluids to half-normal saline. Will check BMP. Patient has received 4 L of normal saline in the ER. Continue antibiotic therapy. Continue to monitor closely. Blood sugar still elevated. Will monitor this closely. Continue Accu-Cheks and sliding scale. Time Spent Managing Pts Care (In Minutes): 15
[2019-09-17 16:15] LABS: Potassium 3.5 mmol/L (3.5-5.1)
[2019-09-17] MEDS ORDERED: THIAMINE 200 MG/2 ML INJ ONE (17:57)
[2019-09-17] MEDS: INSULIN -REGULAR HUMAN 50 UNIT/0.5 ML ML SQ SCH ×2 (18:23→21:25)
[2019-09-17] MEDS ORDERED: ALBUTEROL 2.5 MG/3 ML NEB SOL NEB PRN (18:23)
[2019-09-17] MEDS ORDERED: IPRATROPIUM BROM 0.5MG/2.5ML NEB PRN (18:23)
[2019-09-17] MEDS: NACHLORIDE 0.45% 1,000 ML IV SCH (18:23)
[2019-09-17] MEDS ORDERED: ENOXAPARIN 40 MG/0.4 ML SQ SCH (21:00)
[2019-09-17] MEDS: FAMOTIDINE 20 MG TAB PO SCH (21:00)
[2019-09-17] MEDS: CEFTRIAXONE/SWI 1gm 1 GM/10 ML SYR IVP SCH (21:00)
[2019-09-17] MEDS ORDERED: CEFTRIAXONE/SWI 1gm 1 GM/10 ML SYR ONE (21:05)
[2019-09-17] MEDS ORDERED: ENOXAPARIN 30 MG/0.3 ML SQ ONE (21:07)
[2019-09-17] MEDS ORDERED: FAMOTIDINE 20 MG TAB ONE (21:07)
[2019-09-17] MEDS: ENOXAPARIN 30 MG/0.3 ML SQ SCH (21:20)
[2019-09-17] MEDS ORDERED: INSULIN -REGULAR HUMAN 50 UNIT/0.5 ML ML ONE (21:28)
--- NOTE | 2019-09-17 23:12 | CON ---
Date of Consultation: 09/17/2019 Chief Complaint: Acute kidney injury. History Of Present Illness: Patient was found to have elevated BUN and creatinine. Creatinine on ar rival to the hospital was 3.41, BUN 57. Electrolytes as follows; sodium 129, potassium 3.5, chloride 95, CO2 22, BUN 57, creatinine 3.41, glucose 242. Patient has multiple medical problems including h istory of obesity. She denies history of kidney disease, although review of systems is unobtainable because the patient has encephalopathy and she is confused, somewhat obtunded, and responsive to voic e. She can answer few questions. Patient came to the hospital because of severe fatigue associated with fever. She was traveling from [place] and visiting local areas. She had poor p.o. intake and urine output was declining. She r eports history of urinary tract infection and some urinary discomfort. She decided to come to the em ergency room for thorough evaluation. She was found to have hypotension, blood pressure systolic was 79. White count was elevated up to 14.1, hemoglobin 12.7, sodium 129. Patient is started on IV flu ids for hydration and treatment of volume resuscitation. Antibiotics were started after culture were obtained. CT scan of the brain was ordered to evaluate for acute changes. Review of Systems: Unobtainable. Patient is obtunded. She can answer few questions. She denies history of kidney ston e and she denies chest pain. Past Medical History: Diabetes mellitus, insulin dependent, COPD, former tobacco use, obesity, histo ry of UTI, cholecystectomy, bariatric surgery, hiatal hernia, hysterectomy, hypertension. Family History: Unobtainable. Social History: Former smoker. Denies alcohol. Denies tobacco. Physical Examination: General: Patient is confused and sluggish. Opens her eyes and she is able to converse and she is ab le to answer few questions. Eyes: Anicteric sclerae. EOMI. Ears, Nose, Mouth, and Throat: Oral mucosa moist. No pallor. Neck: Supple. No bruits. Lungs: Clear to auscultation bilaterally. Heart: S1, S2. No pericardial friction rub. Abdomen: Soft, benign, nontender. Extremities: Edema present in both legs. Laboratory Data: WBC 14.1, hemoglobin 12.7, hematocrit 37.7, platelet count 140,000. Sodium 129, po tassium 3.5, BUN 57, creatinine 3.41, glucose 242, magnesium 2.0, AP 144, amylase 19. Assessment And Plan: Hypotension, sepsis, septic shock. Patient will continue antibiotics. Patient will require pressors and IV fluids as needed for treatment of severe sepsis. Blood pressure is on low side. Patient may require pressors. CT scan of the abdomen and pelvis was done to rule out evidence of obstructive uropathy. Liver, sple en, pancreas, adrenal glands, and kidneys are within normal limits. No bowel obstruction. Appendix is not identified as a discrete structure. An acute abnormality is not detected. CT scan of the hea d did not show acute abnormalities. Acute kidney injury, diabetic kidney disease, likely patient has underlying chronic kidney disease, b ut there is no evidence of metabolic acidosis. Bicarbonate is 22. There is dilutional hyponatremia. Patient will continue normal saline for hydration. Monitor renal function. Patient has history of uncontrolled diabetes. Hemoglobin A1c is 10.7. Continue insulin for the glycemia control. Severe sepsis. Continue antibiotics. Adjust antibiotic dose to renal function. Blood cultures are pending to rule out bacteremia and urine cultures were obtained. Urinalysis was done and it showed h ematuria, wbc were up to 15, and proteinuria was 3+. Plan is to check urine protein electrophoresis to rule out monoclonal gammopathy of unknown significance and to check vascul itis panel. SUMAYA/ALISON Voice ID: [id number] Report ID: [id number]
[2019-09-17] MEDS: ARFORMOTEROL TARTRATE 15 MCG/2 ML VIAL.NEB NEB SCH (23:40)
[2019-09-17] MEDS ORDERED: ARFORMOTEROL TARTRATE 15 MCG/2 ML VIAL.NEB ONE (23:55)
[2019-09-18] MEDS ORDERED: NACHLORIDE 0.45% 1,000 ML IV ONE (02:10)
[2019-09-18] MEDS: NACHLORIDE 0.45% 1,000 ML IV SCH ×2 (04:23→13:38)
[2019-09-18] MEDS ORDERED: ACETAMINOPHEN 500 MG TAB ONE (04:46)
[2019-09-18] MEDS: ACETAMINOPHEN 500 MG TAB PO PRN ×4 (04:51→22:16)
[2019-09-18 05:11] LABS: Absolute Lymphocytes (CBC) 0.4 K/uL (0.7-4.9); Basophils % 0.2 % (0-1.3); Hematocrit 36.9 % (36.0-45.0); Lymphocytes % 2.4 % (15.3-44.8); MPV 9.5 fL (7.6-11.3); RBC Red Blood Cell Count 4.12 M/uL (3.86-4.86)
[2019-09-18 05:34] LABS: Thyroid Stimulating Hormone 0.842 uIU/mL (0.360-3.740)
[2019-09-18 05:40] LABS: Potassium 3.3 mmol/L (3.5-5.1)
--- NOTE | 2019-09-18 06:03 | P.PN ---
Date of Service: 09/17/19 Patient's blood cultures positive for gram-negative rods. Will go ahead and start meropenem x1 dose. Continue with the hydration. Hemodynamically stable. Patient can probably be downgraded to go to general medical floor/telemetry if hemodynamically remains stable.
[2019-09-18] MEDS ORDERED: NA CHLORIDE 0.9% 500 ML IV SCH (07:00)
[2019-09-18] MEDS: INSULIN -REGULAR HUMAN 50 UNIT/0.5 ML ML SQ SCH ×4 (07:30→20:29)
--- NOTE | 2019-09-18 07:39 | RAD REPORT ---
EXAM DESCRIPTION: US - Renal Ultrasound-Complete - 09/18/2019 7:19 am CLINICAL HISTORY: arf Flank pain COMPARISON: No comparisons FINDINGS: Both kidneys are normal in size, shape and echotexture. The right kidney measures 13.6 x 6.6 x 6.0 cm. No hydronephrosis, focal mass or perinephric fluid. The left kidney measures 13.6 x 7.2 x 6.8 cm. No hydronephrosis, focal mass or perinephric fluid. The urinary bladder is incompletely distended without gross abnormality seen. IMPRESSION: Unremarkable renal sonogram.
[2019-09-18] MEDS: FAMOTIDINE 20 MG TAB PO SCH ×2 (09:00→20:29)
[2019-09-18] MEDS: CEFTRIAXONE/SWI 1gm 1 GM/10 ML SYR IVP SCH ×2 (09:00→20:29)
[2019-09-18] MEDS: ENOXAPARIN 30 MG/0.3 ML SQ SCH (09:00)
[2019-09-18] MEDS ORDERED: FAMOTIDINE 20 MG TAB ONE (09:04)
[2019-09-18] MEDS ORDERED: POTASSIUM 25 MEQ EFFERV TAB ONE (09:04)
[2019-09-18] MEDS ORDERED: ENOXAPARIN 30 MG/0.3 ML SQ ONE (09:05)
[2019-09-18] MEDS ORDERED: NA CHLORIDE 0.9% 100 ML IV ONE (09:05)
[2019-09-18] MEDS ORDERED: INSULIN -REGULAR HUMAN 50 UNIT/0.5 ML ML ONE (09:05)
[2019-09-18] MEDS ORDERED: CEFTRIAXONE/SWI 1gm 1 GM/10 ML SYR ONE (09:06)
--- NOTE | 2019-09-18 09:50 | P.PN ---
Subjective Date of Service: 09/18/19 Primary Care Provider: Dr. John([place]) Chief Complaint: Fever, fatigue Subjective: Improving, Doing well Physical Examination - Vital Signs Temperature: 100.6 F Blood Pressure: 120/105 Pulse: 88 Respirations: 27 Pulse Ox (%): 94 - Physical Exam General: Alert, In no apparent distress, Oriented x3, Cooperative HEENT: Atraumatic Neck: Supple Respiratory: Clear to auscultation bilaterally, Normal air movement Cardiovascular: Normal pulses, Regular rate/rhythm Gastrointestinal: Normal bowel sounds, Soft and benign, Non-distended, No tenderness, No masses, No rebound, No guarding Musculoskeletal: No erythema, No tenderness, No warmth Integumentary: No tenderness/swelling, No erythema, No warmth, No cyanosis Neurological: Normal speech, Normal strength at 5/5 x4 extr, Normal tone, Normal affect - Studies Microbiology Data (last 24 hrs): 09/17/19 06:55 Blood - Blood Blood Culture Gram Stain - Final 09/17/19 06:55 Blood - Blood Gram Stain - Final 09/17/19 06:55 Blood - Blood Blood Culture Gram Stain - Final 09/17/19 06:55 Blood - Blood Gram Stain - Final Medications List Reviewed: Yes Assessment & Plan Discharge Plan: Home Plan to discharge in: 48 Hours Physician Review Additional Text: Impression: Severe sepsis secondary to UTI with bacteremia, blood/urine culture positive for gram-negative rods Acute renal failure with hyponatremia secondary to sepsis/dehydration/volume depletion Diabetes mellitus type 2 insulin dependent with hyperglycemia COPD Obesity Plan: Severe sepsis secondary to UTI with bacteremia, urine/blood culture positive for gram-negative rods: Patient has done well with IV fluids. Will transition patient to the floor. Will adjust IV fluids. Renal ultrasound negative. Renal function also improved. Continue IV Rocephin. Await culture results. Encourage ambulation if blood pressure stable. Will provide incentive spirometer. Acute renal failure with hyponatremia secondary to sepsis/dehydration/volume depletion: This has improved. Continue IV fluid hydration. Renal ultrasound negative. Await recommendations from nephrology. Diabetes mellitus type 2 insulin dependent with hyperglycemia: Will check A1c. Continue Accu-Cheks and sliding scale. COPD: Will provide COPD medication. Will maintain sats above 90%. Obesity: Will obtain BMI. Address lifestyle modification education. Time Spent Managing Pts Care (In Minutes): 55
[2019-09-18] MEDS ORDERED: INFLUENZA VACCINE (for 3y+) 0.5 ML DOSE IMVAC ONE (10:00)
[2019-09-18] MEDS ORDERED: PNEUMOCOCCAL VACCINE 0.5 ML IMVAC ONE (10:00)
[2019-09-18] MEDS: ARFORMOTEROL TARTRATE 15 MCG/2 ML VIAL.NEB NEB SCH ×2 (10:04→20:20)
[2019-09-18] MEDS: GABAPENTIN 300 MG CAP PO SCH ×2 (13:06→20:29)
[2019-09-18] MEDS: ONDANSETRON 4 MG/2 ML VIAL IV PRN ×2 (13:10→22:19)
--- NOTE | 2019-09-18 15:34 | ECHO ---
HEIGHT: 5 ft 9 in WEIGHT: 320 lb 0 oz DATE OF STUDY: 09/18/[address]: Rishi Pulido DO 2-DIMENSIONAL: YES M.MODE: YES DOPPLER: YES COLOR FLOW: YES TDS: YES PORTABLE: NO DEFINITY: NO BUBBLE STUDY: NO DIAGNOSIS: SEPSIS CARDIAC HISTORY: CATHERIZATION: NO SURGERY: NO PROSTHETIC VALVE: NO PACEMAKER: NO MEASUREMENTS (cm) DIASTOLIC (NORMALS) SYSTOLIC (NORMALS) IVSd 1.1 (0.6-1.2) LA Diam 4.0 (1.9-4.0) LVEF 69% LVIDd 5.7 (3.5-5.7) LVIDs 3.4 (2.0-3.5) %FS 39% LVPWd 1.3 (0.6-1.2) Ao Diam 3.2 (2.0-3.7) 2 DIMENSIONAL ASSESSMENT: RIGHT ATRIUM: NORMAL LEFT ATRIUM: NORMAL RIGHT VENTRICLE: NORMAL LEFT VENTRICLE: NORMAL TRICUSPID VALVE: NORMAL MITRAL VALVE: NORMAL PULMONIC VALVE: NORMAL AORTIC VALVE: SCLEROSIS PERICARDIAL EFFUSION: NONE AORTIC ROOT: NORMAL LEFT VENTRICULAR WALL MOTION: NORMAL. DOPPLER/COLOR FLOW: NO AORTIC STENOSIS OR AORTIC REGURGITATION. TRACE OF MITRAL REGURGITATION. COMMENTS: NORMAL LEFT VENTRICULAR EJECTION FRACTION. AORTIC SCLEROSIS WITH NO AORTIC STENOSIS/ AORTIC REGURGITATION. TRACE OF MITRAL REGURGITATION. TECHNOLOGIST: ADRIAN ELLIS/ ROBIN CAMEJO
--- NOTE | 2019-09-18 15:35 | EKG ---
Test Date: 2019-09-17 Test Time: 11:08:10 Helix Coil Winder: JR MEASUREMENT RESULTS: Intervals: Rate: 86 IN: 174 QRSD: 100 QT: 500 QTc: 598 [place]: P: 40 IN: 174 QRS: 62 T: 38 INTERPRETIVE STATEMENTS: Normal sinus rhythm Nonspecific T wave abnormality Prolonged QT Abnormal ECG No previous ECG available for comparison Electronically Signed On 09-18-19 15:35:00 SAND DIGGER by Gold Davila
[2019-09-18] MEDS: LOPERAMIDE HCL 2 MG CAPSULE PO PRN (18:25)
[2019-09-18] MEDS: LACTOBACILLUS/ACIDOPHILUS TAB PO SCH (20:29)
[2019-09-18] MEDS ORDERED: Meropenem 500 MG VIAL IV ONE (22:39)
--- NOTE | 2019-09-18 23:11 | PN ---
Date of Progress Note: 09/18/2019 Chief Complaint: Acute kidney injury, severe sepsis. Subjective: Patient is on antibiotics. Blood culture, urine cultures were obtained and pending. Renal ultrasound is unremarkable. There is no evidence of urinary retention. Right kidney is 13.6 cm and left kidney 13.6 cm in length. There is no perinephric fluid or focal mass identified. Review of Systems: Denies fevers, chills, cough. Patient is feeling better today. Physical Examination: Lungs: Clear to auscultation bilaterally. Heart: S1-S2. Abdomen: Soft, benign. Extremities: Slight edema. Laboratory Data: WBC 15.5, hemoglobin 12.2, platelet count is 137. Chemistry shows sodium 149, potassium 3.3, chloride 107, CO2 22, BUN 45, creatinine 2.28, glucose 263, calcium 8.6, magnesium 2.0. Urinalysis showed red blood cells and white blood cells. Urine culture is pending. Patient was found to have proteinuria and results are pending for urine protein electrophoresis. Plan: Monitor renal function. Continue IV fluids. Serology tests were ordered to screen for vasculitis. I spent total 36 min including 25 min to coordinate care plan. SUMAYA/ALISON Voice ID: [id number] Report ID: [id number] LYNDSEY
[2019-09-19] MEDS: NACHLORIDE 0.45% 1,000 ML IV SCH ×3 (01:15→11:51)
[2019-09-19 05:01] LABS: Absolute Lymphocytes (CBC) 0.8 K/uL (0.7-4.9); Basophils % 0.2 % (0-1.3); Hematocrit 33.1 % (36.0-45.0); Lymphocytes % 5.5 % (15.3-44.8); MPV 9.5 fL (7.6-11.3); RBC Red Blood Cell Count 3.73 M/uL (3.86-4.86)
[2019-09-19 05:10] LABS: Magnesium 2.3 mg/dL (1.8-2.4); Potassium 3.2 mmol/L (3.5-5.1)
[2019-09-19] MEDS: LOPERAMIDE HCL 2 MG CAPSULE PO PRN (05:29)
[2019-09-19] MEDS ORDERED: POTASSIUM 25 MEQ EFFERV TAB PO ONE ×2 (05:43→16:00)
[2019-09-19] MEDS: ARFORMOTEROL TARTRATE 15 MCG/2 ML VIAL.NEB NEB SCH ×2 (08:05→20:15)
[2019-09-19] MEDS: LACTOBACILLUS/ACIDOPHILUS TAB PO SCH ×3 (08:41→21:11)
[2019-09-19] MEDS: ENOXAPARIN 30 MG/0.3 ML SQ SCH (08:41)
[2019-09-19] MEDS: CEFTRIAXONE/SWI 1gm 1 GM/10 ML SYR IVP SCH ×2 (08:41→21:00)
[2019-09-19] MEDS: GABAPENTIN 300 MG CAP PO SCH ×3 (08:41→21:12)
[2019-09-19] MEDS: FLUOXETINE 20 MG CAP PO SCH (08:42)
[2019-09-19] MEDS: FAMOTIDINE 20 MG TAB PO SCH ×2 (08:42→21:11)
[2019-09-19] MEDS: ROPINIROLE HCL 1 MG TAB PO SCH (08:43)
[2019-09-19] MEDS: INSULIN -REGULAR HUMAN 50 UNIT/0.5 ML ML SQ SCH ×4 (08:44→21:12)
[2019-09-19] MEDS ORDERED: D50W 25 GM/50 ML SYRINGE/VIAL IV PRN (09:38)
[2019-09-19] MEDS ORDERED: GLUCAGON 1 MG/VIAL IM PRN (09:38)
--- NOTE | 2019-09-19 09:43 | P.PN ---
Subjective Date of Service: 09/19/19 Primary Care Provider: Dr. John([place]) Chief Complaint: Fever, fatigue Subjective: Improving (Patient start to have diarrhea yesterday. Diarrhea slightly improved.) Physical Examination - Vital Signs Temperature: 97.8 F Blood Pressure: 116/58 Pulse: 87 Respirations: 20 Pulse Ox (%): 92 - Physical Exam General: Alert, In no apparent distress, Oriented x3, Cooperative HEENT: Atraumatic Neck: Supple Respiratory: Clear to auscultation bilaterally, Normal air movement Cardiovascular: Normal pulses, Regular rate/rhythm Gastrointestinal: Normal bowel sounds, No tenderness, No masses, No rebound, No guarding Musculoskeletal: No erythema, No tenderness, No warmth Neurological: Normal speech, Normal strength at 5/5 x4 extr, Normal tone, Normal affect - Studies Microbiology Data (last 24 hrs): 09/17/19 08:58 Clean Catch Urine [place] Count - Final >100,000 CFU/ML. 09/17/19 08:58 Clean Catch Urine - Final Escherichia Coli 09/17/19 06:55 Blood - Blood Aerobic Blood Culture - Final Escherichia Coli 09/17/19 06:55 Blood - Blood Blood Culture Gram Stain - Final 09/17/19 06:55 Blood - Blood Anaerobic Blood Culture - Final Escherichia Coli 09/17/19 06:55 Blood - Blood Gram Stain - Final 09/17/19 06:55 Blood - Blood Aerobic Blood Culture - Final Escherichia Coli 09/17/19 06:55 Blood - Blood Blood Culture Gram Stain - Final 09/17/19 06:55 Blood - Blood Anaerobic Blood Culture - Final Escherichia Coli 09/17/19 06:55 Blood - Blood Gram Stain - Final Medications List Reviewed: Yes Assessment & Plan Physician Review Additional Text: Impression: Severe sepsis secondary to UTI with bacteremia, blood/urine culture positive for E coli Acute renal failure with hyponatremia secondary to sepsis/dehydration/volume depletion Diabetes mellitus type 2 insulin dependent with hyperglycemia Diarrhea COPD Obesity Plan: Severe sepsis secondary to UTI with bacteremia, urine/blood culture positive for E coli: Patient continues to improve. Continue IV antibiotic therapy. Will consider transitioning to oral medication. Patient with diarrhea. Will need to rule out C diff. Lactobacillus started yesterday. Imodium provided. Continue IV fluids. Nephrology plans for 24 hr urine collection. Increase ambulation. Provide incentive spirometer. Possible discharge in the next 24- 48 hr with clinical improvement. Acute renal failure with hyponatremia secondary to sepsis/dehydration/volume depletion: This has improved. Continue IV fluid hydration. Renal ultrasound negative. Nephrology awaiting analysis for 24 hr urine collection. Diabetes mellitus type 2 insulin dependent with hyperglycemia: A1c elevated at 10.7. Will start basal insulin-Lantus. Will monitor and adjust appropriately. Continue Accu-Cheks and sliding scale. Diarrhea: Will check for C diff. Will monitor closely. Lactobacillus started yesterday. COPD: Will provide COPD medication. Will maintain sats above 90%. Encourage incentive spirometer Obesity: Will obtain BMI. Address lifestyle modification education. Time Spent Managing Pts Care (In Minutes): 55
[2019-09-19] MEDS: INSULIN GLARGINE 100 UNITS/ML SQ SCH (11:50)
[2019-09-19 14:17] LABS: C.diff Antigen/Toxin Ag neg : Tox neg (NEG : NEG)
--- NOTE | 2019-09-19 15:18 | PN ---
Date of Progress Note: 09/19/2019 Subjective: Patient was admitted with colitis, acute kidney injury secondary to prerenal. After hyd ration, kidney function started being improving. Physical Examination: Vital Signs: Blood pressure 116/58, pulse of 87, afebrile. Patient had good urine output of 5 L. p atient negative of 200. Chest: Decreased entry bilateral base. Heart: S1, S2. Regular. Abdomen: Mild tenderness. No guarding or rebound. Extremities: Trace edema. Neurologic: Alert, oriented x3. No focal. Laboratory Data: WBC 13.6, H and H 11.2/33.1, platelets 152. Sodium 137, potassium 3.2, bicarb 25, BUN 28, creatinine 1.3 trending down, GFR of 41 trending up. Calcium 8.5, magnesium 2.3. TSH of 0.8 . WBC of more than 50 in the urine, +3 protein. PC ratio is still pending. Current Medications: Lovenox, Tylenol, gabapentin, ReQuip, Pepcid, lactobacilli, Zofran. IV fluid a t 100 per hour. Assessment And Plan: 1.Acute kidney injury, proteinuria nephrotic range with anemia secondary to prerenal on the recovery , looked to me normal volume to the wet side. I am going to decrease IV fluid to 50. Our plan to DC . 2.Hypertension, currently controlled optimal. Keep holding all the blood pressure medication, espec ially Lasix. 3.Low back pain. Given the acute kidney injury. Please hold ibuprofen. 4.Colitis. Continue current antibiotic. 5.Urinary tract infection, growing Escherichia coli. Continue current antibiotics sensitive to cephalosporin. 6.Hypokalemia. I am going to go ahead and supplement. AILIN/ALISON Voice ID: [id number] Report ID: [id number]
[2019-09-19] MEDS: ACETAMINOPHEN 500 MG TAB PO PRN ×2 (16:20→22:56)
[2019-09-20 04:22] VITALS: BMI 46.3
[2019-09-20 05:04] LABS: Basophils % 0.5 % (0-1.3); Hematocrit 31.9 % (36.0-45.0); Lymphocytes % 8.6 % (15.3-44.8); MPV 9.4 fL (7.6-11.3); RBC Red Blood Cell Count 3.64 M/uL (3.86-4.86)
[2019-09-20 05:20] LABS: Magnesium 2.1 mg/dL (1.8-2.4); Potassium 3.5 mmol/L (3.5-5.1)
--- NOTE | 2019-09-20 07:34 | P.PN ---
Subjective Date of Service: 09/20/19 Primary Care Provider: Dr. John([place]) Chief Complaint: Fever, fatigue Subjective: Improving (Patient doing well. No more diarrhea noted.) Physical Examination - Vital Signs Temperature: 98.6 F Blood Pressure: 128/73 Pulse: 73 Respirations: 18 Pulse Ox (%): 98 - Physical Exam General: Alert, In no apparent distress, Oriented x3, Cooperative HEENT: Atraumatic Neck: Supple Respiratory: Clear to auscultation bilaterally, Normal air movement Cardiovascular: Normal pulses, Regular rate/rhythm Gastrointestinal: Normal bowel sounds, Soft and benign, Non-distended Musculoskeletal: No erythema, No tenderness, No warmth Neurological: Normal speech, Normal strength at 5/5 x4 extr, Normal tone, Normal affect - Studies Microbiology Data (last 24 hrs): 09/17/19 08:58 Clean Catch Urine [place] Count - Final >100,000 CFU/ML. 09/17/19 08:58 Clean Catch Urine - Final Escherichia Coli 09/17/19 06:55 Blood - Blood Aerobic Blood Culture - Final Escherichia Coli 09/17/19 06:55 Blood - Blood Blood Culture Gram Stain - Final 09/17/19 06:55 Blood - Blood Anaerobic Blood Culture - Final Escherichia Coli 09/17/19 06:55 Blood - Blood Gram Stain - Final 09/17/19 06:55 Blood - Blood Aerobic Blood Culture - Final Escherichia Coli 09/17/19 06:55 Blood - Blood Blood Culture Gram Stain - Final 09/17/19 06:55 Blood - Blood Anaerobic Blood Culture - Final Escherichia Coli 09/17/19 06:55 Blood - Blood Gram Stain - Final Medications List Reviewed: Yes Assessment & Plan Discharge Plan: Home Plan to discharge in: 24 Hours Physician Review Additional Text: Impression: Severe sepsis secondary to UTI with bacteremia, blood/urine culture positive for E coli Acute renal failure with hyponatremia secondary to sepsis/dehydration/volume depletion Diabetes mellitus type 2 insulin dependent with hyperglycemia Diarrhea COPD Obesity Plan: Severe sepsis secondary to UTI with bacteremia, urine/blood culture positive for E coli: Patient continues to improve. Renal function also improved. Will transition from IV medication to oral. Will discontinue Nath catheter. Encourage ambulation. Will order physical therapy to help with this. Encourage incentive spirometer. Diarrhea resolved. Will discuss with nephrology. Anticipate discharge likely tomorrow with clinical improvement. Acute renal failure with hyponatremia secondary to sepsis/dehydration/volume depletion: This has improved. Continue IV fluid hydration. Renal ultrasound negative. Will discuss further with nephrology. Diabetes mellitus type 2 insulin dependent with hyperglycemia: A1c elevated at 10.7. Patient started on Lantus yesterday. Will continue to adjust for better control. Continue Accu-Cheks and sliding scale. Diarrhea: C diff culture negative. Diarrhea resolved. Will monitor closely. Lactobacillus started yesterday. COPD: Will continue to provide COPD medication. Will maintain sats above 90%. Encourage incentive spirometer Obesity: BMI 46. Address lifestyle modification education. Time Spent Managing Pts Care (In Minutes): 55
[2019-09-20] MEDS ORDERED: POTASSIUM 25 MEQ EFFERV TAB PO ONE (07:50)
[2019-09-20] MEDS: NACHLORIDE 0.45% 1,000 ML IV SCH (08:00)
[2019-09-20] MEDS: ARFORMOTEROL TARTRATE 15 MCG/2 ML VIAL.NEB NEB SCH ×2 (08:00→20:30)
[2019-09-20] MEDS: INSULIN -REGULAR HUMAN 50 UNIT/0.5 ML ML SQ SCH ×4 (08:13→21:33)
[2019-09-20] MEDS: INSULIN GLARGINE 100 UNITS/ML SQ SCH (08:13)
[2019-09-20] MEDS: ENOXAPARIN 30 MG/0.3 ML SQ SCH (08:14)
[2019-09-20] MEDS: ROPINIROLE HCL 1 MG TAB PO SCH (08:14)
[2019-09-20] MEDS: CEFUROXIME 250 MG TAB PO SCH ×2 (08:14→21:31)
[2019-09-20] MEDS: FLUOXETINE 20 MG CAP PO SCH (08:15)
[2019-09-20] MEDS: FAMOTIDINE 20 MG TAB PO SCH ×2 (08:15→21:31)
[2019-09-20] MEDS: LACTOBACILLUS/ACIDOPHILUS TAB PO SCH ×3 (08:15→21:31)
[2019-09-20] MEDS: GABAPENTIN 300 MG CAP PO SCH ×3 (08:15→21:32)
--- NOTE | 2019-09-20 20:37 | PN ---
Date of Progress Note: 09/20/2019 Subjective: Patient was admitted with gastroenteritis, diarrhea, with acute kidney injury secondary to prerenal. Patient started on aggressive hydration, kidney function started to normalize. Physical Examination: Vital Signs: Patient's blood pressure of 115/61, pulse of 77, afebrile. Chest: Clear to auscultation. Heart: S1, S2. Regular. Abdomen: Soft, nontender. Extremities: Trace edema. Laboratory Data: WBC 11.5, hemoglobin and hematocrit 10.6/31.9, and platelets 164. Sodium 139, pota ssium 3.5, bicarb 28, BUN 19, creatinine 1, calcium 8.6. Magnesium 2.1. Current Medications: Include gabapentin, fluoxetine, Requip, breathing treatment, Pepcid, Zofran. Assessment And Plan: 1.Acute kidney injury secondary to prerenal, secondary to gastrointestinal loss, recovered, resolved . 2.Hypertension, controlled, optimal. Keep holding all the blood pressure medication. 3.Colitis, recovering very well. 4.Urinary tract infection secondary to Escherichia coli. Continue current antibiotic. 5.Hypokalemia. We will supplement. FIONA Voice ID: [id number] Report ID: [id number]
[2019-09-20] MEDS ORDERED: ROPINIROLE HCL 1 MG TAB PO SCH (21:00)
[2019-09-21 06:00] LABS: Magnesium 1.9 mg/dL (1.8-2.4); Potassium 3.5 mmol/L (3.5-5.1)
[2019-09-21 06:24] VITALS: BP 129/62; TEMP 98.1
[2019-09-21 06:48] LABS: Absolute Lymphocytes (CBC) 1.2 K/uL (0.7-4.9); Basophils % 0.5 % (0-1.3); Hematocrit 37.5 % (36.0-45.0); Lymphocytes % 8.2 % (15.3-44.8); MPV 9.2 fL (7.6-11.3); RBC Red Blood Cell Count 4.25 M/uL (3.86-4.86)
[2019-09-21] MEDS: ARFORMOTEROL TARTRATE 15 MCG/2 ML VIAL.NEB NEB SCH (08:00)
[2019-09-21] MEDS: INSULIN -REGULAR HUMAN 50 UNIT/0.5 ML ML SQ SCH (08:28)
[2019-09-21] MEDS: CEFUROXIME 250 MG TAB PO SCH (08:29)
[2019-09-21] MEDS: LACTOBACILLUS/ACIDOPHILUS TAB PO SCH (08:29)
[2019-09-21] MEDS: GABAPENTIN 300 MG CAP PO SCH (08:29)
[2019-09-21] MEDS: INSULIN GLARGINE 100 UNITS/ML SQ SCH (08:29)
[2019-09-21] MEDS: FAMOTIDINE 20 MG TAB PO SCH (08:29)
[2019-09-21] MEDS: ENOXAPARIN 30 MG/0.3 ML SQ SCH (08:29)
[2019-09-21] MEDS: FLUOXETINE 20 MG CAP PO SCH (08:30)
--- NOTE | 2019-09-21 08:43 | P.DS ---
Admission Date: 09/17/19 Discharge Date: 09/21/19 Primary Care Provider: Dr. John([place]) Disposition: ROUTINE DISCHARGE Discharge Condition: GOOD Reason for Admission: Fever, fatigue Consultations: Nephrology-Dr. Stuart Procedures: CT Head: FINDINGS: No intracranial hemorrhage, hydrocephalus or extra-axial fluid collection.No areas of brain edema or evidence of midline shift. The paranasal sinuses and mastoids are clear. The calvarium is intact. IMPRESSION: No acute intracranial abnormality. CT Ab: FINDINGS: The lungs are clear.No pleural or pericardial effusion.No intrathoracic adenopathy. The liver, spleen, pancreas, adrenal glands and kidneys are within normal limits. Cholecystectomy clips. Postsurgical changes about the stomach. No bowel obstruction, free air, free fluid or abscess. The appendix is not identified as a discrete structure, however, no secondary findings of appendicitis are identified. No pathologic lymphadenopathy in the abdomen or pelvis. Mild lower lumbar degenerative changes. IMPRESSION: An acute abnormality is not detected. Renal US: FINDINGS: Both kidneys are normal in size, shape and echotexture. The right kidney measures 13.6 x 6.6 x 6.0 cm. No hydronephrosis, focal mass or perinephric fluid. The left kidney measures 13.6 x 7.2 x 6.8 cm. No hydronephrosis, focal mass or perinephric fluid. The urinary bladder is incompletely distended without gross abnormality seen. IMPRESSION: Unremarkable renal sonogram. ECHO: EF 69% LEFT VENTRICULAR WALL MOTION: NORMAL. DOPPLER/COLOR FLOW: NO AORTIC STENOSIS OR AORTIC REGURGITATION. TRACE OF MITRAL REGURGITATION. COMMENTS: NORMAL LEFT VENTRICULAR EJECTION FRACTION. AORTIC SCLEROSIS WITH NO AORTIC STENOSIS/ AORTIC REGURGITATION. 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 Patient is visiting in the area. She is originally from [place]. She gets her care there. Since being here she has been having fever, fatigue. She has poor oral intake and output. She has some dysuria. Patient reports a history of UTI. She reported fever this morning. She came to the ER for further evaluation. In the ER patient evaluated. Patient was hypotensive with a blood pressure around 79 systolic. White count 14.1, hemoglobin 12.7. She had 88 segs and 5 bands. Sodium 129, potassium 3.5, BUN of 57, creatinine 3.4 with a GFR of 14 per glucose 242. Pro calcitonin elevated at 37. Lactic acid normal. Urinalysis positive for UTI. Sepsis protocol was initiated in the emergency room. Patient to get central line. When I saw the patient ER, she was able to converse and provide history. Patient appeared dehydrated. Blood pressure had improved for 100 systolic. Patient appeared septic. Hospital Course: Patient presented with severe sepsis with acute renal failure and hyponatremia. Patient was admitted for further treatment. Nephrology was consulted. Patient was started on sepsis protocol. Patient continued to do well with IV fluid resuscitation and IV antibiotic therapy. Patient was eventually transitioned to the floor. Renal function improved back to baseline. Renal ultrasound negative. During the course of her stay, CT head negative. CT abdomen negative. Echocardiogram shows normal ejection fraction. Blood and urine cultures were positive for E coli. Patient was transition to Ceftin 500 mg twice daily. At discharge, Patient will continue with Ceftin 500 mg twice daily for 10 more days. Recommend follow up with her PCP in 7-14 days. Recommend to recheck blood culture, urine culture, and BMP at that time to monitor resolution. UTI prevention provided. Education on adequate intake also address. Patient with diabetes mellitus type 2 with hyperglycemia. A1c 10.7. Patient was started on Lantus for diabetic control. At discharge, Recommend to continue with Lantus 10 units subcu daily. Recommend to monitor blood sugar at least twice daily. Recommend to maintain blood sugar at least 140 fasting and less than 200 after meals. Further adjustment can be done by her PCP. Patient with COPD. This has remained stable. Patient started on medication. At discharge, Patient will continue with Advair 1 puff twice daily and Pro air 2 puffs 3 times a day as needed for shortness of breath. Education on COPD provided. Recommend follow up with pulmonology as an outpatient to further address. Patient may also have underlying obstructive sleep apnea that may need to be further addressed by pulmonology. Patient had mild diarrhea during the course of her stay. C diff culture negative. Diarrhea has resolved. At discharge patient will continue with probiotics 3 times a day. Patient with GERD and prior history of bariatric surgery. At discharge she will continue with Protonix 40 mg daily. Recommend no further use of nonsteroidal anti-inflammatories. Patient with Depression and anxiety. Patient may continue with Prozac 40 mg daily and Seroquel 100 mg at bedtime. Patient with restless leg syndrome. At discharge she may continue with Requip 1 mg at bedtime. Patient with diabetic neuropathy. At discharge she may continue with Neurontin 600 mg 3 times a day. Will recommend no further use of nonsteroidal anti- inflammatories or muscle relaxers. Vital Signs/Physical Exam: Temp Pulse Resp BP Pulse Ox 98.1 F 74 20 129/62 95 09/21/19 04:00 09/21/19 04:00 09/21/19 04:00 09/21/19 04:00 09/21/19 04:00 General: Alert, In no apparent distress, Oriented x3, Cooperative HEENT: Atraumatic Neck: Supple Respiratory: Clear to auscultation bilaterally, Normal air movement Cardiovascular: Normal pulses, Regular rate/rhythm Gastrointestinal: Normal bowel sounds, Soft and benign, Non-distended, No tenderness, No masses, No rebound, No guarding Musculoskeletal: No erythema, No tenderness, No warmth Integumentary: No erythema, No warmth, No cyanosis Neurological: Normal speech, Normal strength at 5/5 x4 extr, Normal tone, Normal affect Lymphatics: No axilla or inguinal lymphadenopathy Laboratory Data at Discharge: WBC 14.7 K/uL (4.3-10.9) H D 09/21/19 06:30 Hgb 12.4 g/dL (12.0-15.0) 09/21/19 06:30 Hct 37.5 % (36.0-45.0) D 09/21/19 06:30 Plt Count 230 K/uL (152-406) D 09/21/19 06:30 PT 14.8 SECONDS (9.5-12.5) H 09/17/19 12:54 INR 1.27 09/17/19 12:54 APTT 27.6 SECONDS (24.3-36.9) 09/17/19 12:54 Sodium 138 mmol/L (136-145) 09/21/19 05:17 Potassium 3.5 mmol/L (3.5-5.1) 09/21/19 05:17 BUN 15 mg/dL (7-18) 09/21/19 05:17 Creatinine 0.98 mg/dL (0.55-1.3) 09/21/19 05:17 Glucose 223 mg/dL (74-106) H 09/21/19 05:17 Magnesium 1.9 mg/dL (1.8-2.4) 09/21/19 05:17 Total Bilirubin 0.5 mg/dL (0.2-1.0) 09/17/19 06:55 AST 29 U/L (15-37) 09/17/19 06:55 ALT 29 U/L (12-78) 09/17/19 06:55 Alkaline Phosphatase 144 U/L (45-117) H 09/17/19 06:55 Triglycerides 320 mg/dL (<150) H 09/18/19 04:35 Cholesterol 108 mg/dL (<200) 09/18/19 04:35 HDL Cholesterol 13 mg/dL (40-60) L 09/18/19 04:35 Cholesterol/HDL Ratio 8.31 09/18/19 04:35 Amylase 19 U/L (25-115) L 09/17/19 06:55 Lipase 81 U/L (73-393) 09/17/19 06:55 Home Medications: Fluoxetine HCl [Prozac] 40 mg PO DAILY 09/18/19 Gabapentin [Neurontin] 600 mg PO TID 09/18/19 Montelukast [Singulair*] 10 mg PO DAILY 09/18/19 Ondansetron [Ondansetron Odt] 4 mg PO Q12HR PRN 09/18/19 Pantoprazole [Protonix Tab*] 40 mg PO DAILY 09/18/19 Quetiapine [Seroquel*] 100 mg PO DAILY 09/18/19 Ropinirole HCl [Requip*] 1 mg PO DAILY 09/18/19 Albuterol Sulfate [Proair Hfa] 2 puff IH TID PRN #1 hfa.aer.ad 09/21/19 Cefuroxime [Ceftin*] 500 mg PO BID #40 tab 09/21/19 Fluticasone/Salmeterol [Advair 250-50 Diskus] 1 each IH BID #1 blst.w.dev Insulin Glargine Human [Lantus*] 10 units SQ DAILY WITH BREAKFAST #1 bottle 12/05 Lactobacillus Acidophilus [Probiotic Acidophilus] 1 each PO TID #90 tablet 09/20 New Medications: Albuterol Sulfate [Proair Hfa] 2 puff IH TID PRN #1 hfa.aer.ad PRN Reason: Shortness Of Breath Cefuroxime [Ceftin*] 500 mg PO BID #40 tab Fluticasone/Salmeterol [Advair 250-50 Diskus] 1 each IH BID #1 blst.w.dev Insulin Glargine Human [Lantus*] 10 units SQ DAILY WITH BREAKFAST #1 bottle Lactobacillus Acidophilus [Probiotic Acidophilus] 1 each PO TID #90 tablet Patient Discharge Instructions: 1. Patient will follow up with her PCP in 1-2 weeks to follow up this hospitalization. 2. Patient presented with severe sepsis with acute renal failure and hyponatremia. Patient was admitted for further treatment. Nephrology was consulted. Patient was started on sepsis protocol. Patient continued to do well with IV fluid resuscitation and IV antibiotic therapy. Patient was eventually transitioned to the floor. Renal function improved back to baseline. Renal ultrasound negative. During the course of her stay, CT head negative. CT abdomen negative. Echocardiogram shows normal ejection fraction. Blood and urine cultures were positive for E coli. Patient was transition to Ceftin 500 mg twice daily. At discharge, Patient will continue with Ceftin 500 mg twice daily for 10 more days. Recommend follow up with her PCP in 7-14 days. Recommend to recheck blood culture, urine culture, and BMP at that time to monitor resolution. UTI prevention provided. Education on adequate intake also address. 3. Patient with diabetes mellitus type 2 with hyperglycemia. A1c 10.7. Patient was started on Lantus for diabetic control. At discharge, Recommend to continue with Lantus 10 units subcu daily. Recommend to monitor blood sugar at least twice daily. Recommend to maintain blood sugar at least 140 fasting and less than 200 after meals. Further adjustment can be done by her PCP. 4. Patient with COPD. This has remained stable. Patient started on medication. At discharge, Patient will continue with Advair 1 puff twice daily and Pro air 2 puffs 3 times a day as needed for shortness of breath. Education on COPD provided. Recommend follow up with pulmonology as an outpatient to further address. Patient may also have underlying obstructive sleep apnea that may need to be further addressed by pulmonology. 5. Patient had mild diarrhea during the course of her stay. C diff culture negative. Diarrhea has resolved. At discharge patient will continue with probiotics 3 times a day. 6. Patient with GERD and prior history of bariatric surgery. At discharge she will continue with Protonix 40 mg daily. Recommend no further use of nonsteroidal anti-inflammatories. 7. Patient with Depression and anxiety. Patient may continue with Prozac 40 mg daily and Seroquel 100 mg at bedtime. 8. Patient with restless leg syndrome. At discharge she may continue with Requip 1 mg at bedtime. 9. Patient with diabetic neuropathy. At discharge she may continue with Neurontin 600 mg 3 times a day. Will recommend no further use of nonsteroidal anti-inflammatories or muscle relaxers. Diet: ADA Activity: Ad makenzie Time spent managing pt's care (in minutes): 55
[2019-09-21 11:13] VITALS: O2SAT 92
[2019-09-21 11:28] LABS: Blood Morphology Comment NOT SEEN (NOT SEEN); Platelet Estimate ADEQ; Urine White Blood Cell Casts OK
[2019-09-24 06:56] LABS: Beta Globulin 24 HR Urine 23 %; Gamma Globulin, 24hr Urine 12 %; Interpretation: REPORT; Urine Alpha-2-Globulins, 24 Hr 27 %; Urine PEP Abn Protein Band1 REPORT; Urine Protein/Creat Ratio 24Hr 1292 mg/g creat (<115); Urine Total Volume 24 Hours 5100 mL
== END 2019-09-21 10:31 | disposition home or self-care (01) | DRG 872 ==
LOC: ER 07:35 → ERHOLD 09:51 → 2ND 09-18 09:37
PROVIDERS: ADMIT Family Medicine; ATTEND Family Medicine
DX: A41.51 Sepsis due to Escherichia coli [E. coli] (principal); N39.0 Urinary tract infection, site not specified; N17.9 Acute kidney failure, unspecified; E87.1 Hypo-osmolality and hyponatremia; Z68.42 Body mass index [BMI] 45.0-49.9, adult; R65.20 Severe sepsis without septic shock; E86.0 Dehydration; E11.65 Type 2 diabetes mellitus with hyperglycemia; R19.7 Diarrhea, unspecified; J44.9 Chronic obstructive pulmonary disease, unspecified; K21.9 Gastro-esophageal reflux disease without esophagitis; E11.40 Type 2 diabetes mellitus with diabetic neuropathy, unspecified; F41.8 Other specified anxiety disorders; G25.81 Restless legs syndrome; E66.9 Obesity, unspecified; Z98.84 Bariatric surgery status
CPT/HCPCS: 36415; 70450; 71045; 71250; 74176; 76770; 80048; 80061; 80076; 81003; 81015; 82150; 82550; 82553; 82805; 82947; 83036; 83605; 83690; 83735; 83880; 84132; 84145; 84166; 84439; 84443; 84484; 85025; 85610; 85730; 86021; 86334; 87040; 87077; 87086; 87088; 87186; 87205; 87324; 87449; 93005; 93306; 99285; J0692; J0696; J1650; J1720; J1815; J2405; J3411; J7030; J7040; J7605